=== PATIENT | male | born 2000 | race Caucasian/White ===

== ENCOUNTER 2019-06-03 18:46 | Emergency (ER) | payer OTHER ==
[2019-06-03 18:52] VITALS: BP 140/84; PULSE 107; RESP 20; TEMP 98.3
[2019-06-03] MEDS ORDERED: DIPH,PERTUS(ACELL)TETVAC-LF 0.5 ML VIAL IM ONE (19:29)
[2019-06-03] MEDS ORDERED: CEPHALEXIN 500MG STARTER PACK 4 CAP BTL PO STA (19:29)
--- NOTE | 2019-06-03 19:35 | ED ---
Lower Extremity Injury HPI - General Chief Complaint: Extremity Injury, Lower Stated Complaint: Metal wires stuck in leg Time Seen by Provider: 06/03/19 19:02 Source: patient, RN notes reviewed Mode of arrival: ambulatory Limitations: no limitations - History of Present Illness Initial Comments: 19-year-old male presents emergency from chief complaint of foreign body to the right lower leg region. Patient states he was usingweed clover states that a piece of metal flew into his right leg he is unsure when his last tetanus was. He states he attempted to remove the pieces but cannot pull them out himself. Patient denies any active bleeding. - Related Data Home Medications Medication Instructions Recorded Confirmed Lisdexamfetamine Dimesylate 60 mg PO QAM 07/15/14 07/15/14 [Vyvanse] Previous Rx's Medication Instructions Recorded Ibuprofen [Motrin] 800 mg PO Q6HR PRN #20 tab 07/15/14 Cephalexin [Keflex] 500 mg PO Q8HR #21 cap 06/03/19 Allergies Allergy/AdvReac Type Severity Reaction Status Date / Time No Known Allergies Allergy Verified 06/03/19 18:52 Review of Systems ROS Statement: Those systems with pertinent positive or pertinent negative responses have been documented in the HPI. ROS Other: All systems not noted in ROS Statement are negative. Past Medical History Past Medical History: No Reported History Additional Past Medical History / Comment(s): adhd History of Any Multi-Drug Resistant Organisms: None Reported Past Surgical History: No Surgical Hx Reported Past Psychological History: ADD/ADHD Smoking Status: Current every day smoker Past Alcohol Use History: Occasional Past Drug Use History: Marijuana General Exam Limitations: no limitations General appearance: alert, in no apparent distress Head exam: Present: atraumatic, normocephalic, normal inspection Neck exam: Present: normal inspection, full ROM. Absent: tenderness, meningismus, lymphadenopathy Respiratory exam: Present: normal lung sounds bilaterally. Absent: respiratory distress, wheezes, rales, rhonchi, stridor Cardiovascular Exam: Present: regular rate, normal rhythm, normal heart sounds. Absent: systolic murmur, diastolic murmur, rubs, gallop, clicks Extremities exam: Present: other (Right calf region there are 2 very thin metal wires noted in the subcutaneous neurovascular intact) Skin exam: Present: warm, dry, intact, normal color. Absent: rash Course Vital Signs 06/03/19 18:49 Temperature 98.3 F Pulse Rate 107 H Respiratory 20 Rate Blood Pressure 140/84 O2 Sat by Pulse 98 Oximetry Procedures - Procedures Initial comment: Soft tissue foreign body was removed by me with no complications, no active bleeding the wound was cleaned, dressed. 2 pieces of metal removed Medical Decision Making - Medical Decision Making 19-year-old male presents from for foreign bite to his right leg. This was removed and no comp patients tetanus is updated patient we discharged on Keflex. Disposition Clinical Impression: Soft tissues foreign body Disposition: HOME SELF-CARE Condition: Stable Instructions (If sedation given, give patient instructions): Soft Tissue Foreign Body (ED) Additional Instructions: Please return to the Emergency Department if symptoms worsen or any other екатерина rns. Prescriptions: Cephalexin [Keflex] 500 mg PO Q8HR #21 cap Is patient prescribed a controlled substance at d/c from ED?: No Referrals: Yanet Machuca MD [Primary Care Provider] - 1-2 days Time of Disposition: 19:34
--- NOTE | 2019-06-03 20:15 | XR ---
PROCEDURE: XR tibia fibula RT - 4V DATE AND TIME: 06/03/2019 7:28 PM CLINICAL INDICATION: PHH; Pain TECHNIQUE: Department protocol COMPARISON: None FINDINGS: There is no fracture or malalignment. There are 2 metallic opacities in the lateral subcuta neous soft tissues of the upper right leg, which are well visualized on all four views. These are con sistent with pieces of wire measuring 0.1 cm diameter and measuring 1.5 cm and approximately 7.5 cm i n total length. IMPRESSION: Metallic radiopaque foreign bodies.
== END 2019-06-03 19:53 | disposition home or self-care (01) ==
LOC: EC 18:46
DX: S80.851A Superficial foreign body, right lower leg, initial encounter (principal); F90.9 Attention-deficit hyperactivity disorder, unspecified type; F17.200 Nicotine dependence, unspecified, uncomplicated; Z23 Encounter for immunization; Z79.899 Other long term (current) drug therapy; W45.8XXA Other foreign body or object entering through skin, initial encounter; Y93.E2 Activity, laundry; Y92.096 Garden or yard of other non-institutional residence as the place of occurrence of the external cause
CPT/HCPCS: 90471; 90715; 99283

== ENCOUNTER 2022-07-19 22:22 | Emergency (ER) | payer OTHER ==
[2022-07-19 23:00] VITALS: BP 130/75; PULSE 86; RESP 22; TEMP 98.4
--- NOTE | 2022-07-20 00:42 | ED ---
General Adult HPI - General Chief complaint: Upper Respiratory Infection Stated complaint: Covid + Time Seen by Provider: 07/19/22 23:07 Source: patient, family Mode of arrival: ambulatory Limitations: no limitations - History of Present Illness Initial comments: Patient is a 22-year-old male who presents complaining COVID-19. Patient states symptoms started 3 days ago. He had a positive home test today. He is experiencing nasal congestion and sore throat. Denies chest pain and shortness of breath. He requests Paxlovid prescription. - Related Data Home Medications Medication Instructions Recorded Confirmed Lisdexamfetamine Dimesylate 60 mg PO QAM 07/15/14 07/15/14 [Vyvanse] Previous Rx's Medication Instructions Recorded Ibuprofen [Motrin] 800 mg PO Q6HR PRN #20 tab 07/15/14 Cephalexin [Keflex] 500 mg PO Q8HR #21 cap 06/03/19 Fluticasone Nasal [place] [Flonase 2 spray EA NOSTRIL DAILY #16 gm 07/20/22 Nasal [place]] Allergies Allergy/AdvReac Type Severity Reaction Status Date / Time No Known Allergies Allergy Verified 07/19/22 23:00 Review of Systems ROS Statement: Those systems with pertinent positive or pertinent negative responses have been documented in the HPI. ROS Other: All systems not noted in ROS Statement are negative. Past Medical History Past Medical History: No Reported History Additional Past Medical History / Comment(s): adhd History of Any Multi-Drug Resistant Organisms: None Reported Past Surgical History: No Surgical Hx Reported Past Psychological History: ADD/ADHD Smoking Status: Former smoker, Vaper Past Alcohol Use History: Occasional Past Drug Use History: Marijuana General Exam Limitations: no limitations General appearance: alert, in no apparent distress Eye exam: Present: normal appearance, PERRL, EOMI. Absent: scleral icterus, conjunctival injection, periorbital swelling ENT exam: Present: normal oropharynx Respiratory exam: Present: normal lung sounds bilaterally. Absent: respiratory distress, wheezes, rales, rhonchi, stridor Cardiovascular Exam: Present: regular rate, normal rhythm, normal heart sounds. Absent: systolic murmur, diastolic murmur, rubs, gallop, clicks Neurological exam: Present: alert, oriented X3, CN II-XII intact Psychiatric exam: Present: normal affect, normal mood Skin exam: Present: warm, dry, intact, normal color. Absent: rash Course Vital Signs 07/19/22 22:58 Temperature 98.4 F Pulse Rate 86 Respiratory 22 Rate Blood Pressure 130/75 O2 Sat by Pulse 98 Oximetry Medical Decision Making - Medical Decision Making This is a 22-year-old male who presents with COVID-19 symptoms positive at home test today. Thorough history and examination were performed. Patient is well- appearing. Afebrile. COVID-19 is detected. Patient given Paxlovid prescription. Quarantine instructions provided. Patient to follow-up with primary care provider. Dr. Rodriguez is my attending. - Lab Data Lab Results 07/19/22 Range/Units 23:03 Coronavirus (PCR) Detected A (Not Detectd) Disposition Clinical Impression: COVID-19 Disposition: HOME SELF-CARE Condition: Good Instructions (If sedation given, give patient instructions): Coronavirus Disease 2019 (COVID-19) Additional Instructions: Take Paxlovid prescription to the pharmacy to fill. Quarantine at home for 5 days. Use nasal spray for congestion. Take Tylenol or Motrin for headache. Use salt water gargles or lozenges for throat pain. Increase water intake. Return to the emergency department if you experience new, concerning, or worsening symptoms. Prescriptions: Fluticasone Nasal [place] [Flonase Nasal [place]] 2 spray EA NOSTRIL DAILY #16 gm Is patient prescribed a controlled substance at d/c from ED?: No Referrals: Yanet Machuca MD [Primary Care Provider] - 1-2 days Time of Disposition: 00:42
== END 2022-07-20 01:13 | disposition home or self-care (01) ==
LOC: EC 22:22
DX: U07.1 COVID-19 (principal); F17.290 Nicotine dependence, other tobacco product, uncomplicated; F12.90 Cannabis use, unspecified, uncomplicated
CPT/HCPCS: 87635; 99283

== ENCOUNTER 2022-07-26 21:55 | Emergency (ER) | payer OTHER ==
[2022-07-26 22:07] VITALS: BP 118/72; PULSE 75; RESP 16; TEMP 98.3
--- NOTE | 2022-07-27 00:13 | XR ---
EXAMINATION TYPE: XR chest 2V DATE OF EXAM: 07/26/2022 COMPARISON: NONE HISTORY: Syncope TECHNIQUE: 2 views FINDINGS: Heart and mediastinum are normal. Lungs are clear. Diaphragm is normal. Bony thorax is norm al. IMPRESSION: Normal chest. Normal heart.
[2022-07-27] MEDS ORDERED: SODIUM CHLORIDE 0.9% 1,000 ML IV STA (00:36)
--- NOTE | 2022-07-27 01:05 | ED ---
Dizziness HPI - General Chief Complaint: Dizziness Stated Complaint: Covid related issue Time Seen by Provider: 07/27/22 00:16 Source: patient, RN notes reviewed Mode of arrival: ambulatory Limitations: no limitations - History of Present Illness Initial Comments: This is a 22-year-old male who presents to the emergency department for COVID related problems. Patient states that on 07/19 he tested positive for COVID. Over the last few days, he has become significantly more short of breath and feels like he has episodes where he becomes dizzy and may pass out. When he was at work earlier today, he began to feel dizzy and almost passed out on one of the machines. Denies any chest pain or upper respiratory symptoms. He did not have any issues like this prior to being diagnosed with COVID. Denies any fevers, chills, sore throat, cough, chest pain, palpitations, abdominal pain, nausea, vomiting, diarrhea, back pain, or headaches. MD Complaint: dizziness, near syncope Onset/Timin -: days(s) - Related Data Home Medications Medication Instructions Recorded Confirmed Lisdexamfetamine Dimesylate 60 mg PO QAM 07/15/14 07/15/14 [Vyvanse] Previous Rx's Medication Instructions Recorded Ibuprofen [Motrin] 800 mg PO Q6HR PRN #20 tab 07/15/14 Cephalexin [Keflex] 500 mg PO Q8HR #21 cap 06/03/19 Fluticasone Nasal [place] [Flonase 2 spray EA NOSTRIL DAILY #16 gm 07/20/22 Nasal [place]] Albuterol Inhaler [Ventolin Hfa 1 puff INHALATION Q6H PRN #8 gm 07/27/22 Inhaler] Meclizine [Antivert] 25 mg PO TID PRN #30 tab 07/27/22 Metoclopramide [Reglan] 10 mg PO Q6H PRN #30 tab 07/27/22 Allergies Allergy/AdvReac Type Severity Reaction Status Date / Time No Known Allergies Allergy Verified 07/26/22 22:02 Review of Systems ROS Statement: Those systems with pertinent positive or pertinent negative responses have been documented in the HPI. ROS Other: All systems not noted in ROS Statement are negative. Past Medical History Past Medical History: No Reported History Additional Past Medical History / Comment(s): adhd History of Any Multi-Drug Resistant Organisms: None Reported Past Surgical History: No Surgical Hx Reported Past Psychological History: ADD/ADHD Smoking Status: Former smoker, Vaper Past Alcohol Use History: Occasional Past Drug Use History: Marijuana General Exam Limitations: no limitations General appearance: alert, in no apparent distress Head exam: Present: atraumatic, normocephalic, normal inspection Respiratory exam: Present: normal lung sounds bilaterally. Absent: respiratory distress, wheezes, rales, rhonchi, stridor Cardiovascular Exam: Present: regular rate, normal rhythm, normal heart sounds. Absent: systolic murmur, diastolic murmur, rubs, gallop, clicks Neurological exam: Present: alert, oriented X3, CN II-XII intact Psychiatric exam: Present: normal affect, normal mood Skin exam: Present: warm, dry, intact, normal color. Absent: rash Course Vital Signs 07/26/22 22:03 Temperature 98.3 F Pulse Rate 75 Respiratory 16 Rate Blood Pressure 118/72 O2 Sat by Pulse 98 Oximetry Medical Decision Making - Medical Decision Making This is a 22-year-old male who presents to the emergency department for shortness of breath and dizziness. Lab work and a chest x-ray were obtained. Lab work was nonactionable, and included a d-dimer to evaluate for pulmonary embolus and troponin to evaluate for myocardial injury. Chest x-ray revealed no acute cardiopulmonary process. Discussed with the patient that he is still in the process of recovering from COVID-19. Prescription for albuterol inhaler provided to use for episodes of shortness of breath. Also discussed that the dizziness may be related to vertigo as a result of the COVID. Patient was given prescription for Antivert and Reglan to help with these episodes. Advised that the Antivert may be sedating and is best taken at night or if he will be home all day. Return precautions reviewed in depth, the patient is instructed to return to the emergency department with any new, worsening, or concerning symptoms. Patient verbalized understanding. This case was discussed in detail with the attending ED physician. Presentation, findings, and treatment plan discussed in detail as well. - Lab Data Result diagrams: 07/27/22 01:11 07/27/22 01:11 Lab Results 07/27/22 07/27/22 07/27/22 Range/Units 01:11 01:11 01:11 WBC 7.7 (3.8-10.6) k/uL RBC 5.14 (4.30-5.90) m/uL Hgb 15.4 (13.0-17.5) gm/dL Hct 45.5 (39.0-53.0) % MCV 88.5 (80.0-100.0) fL MCH 29.9 (25.0-35.0) pg MCHC 33.8 (31.0-37.0) g/dL RDW 13.5 (11.5-15.5) % Plt Count 218 (150-450) k/uL MPV 7.7 Neutrophils % 60 % Lymphocytes % 28 % Monocytes % 7 % Eosinophils % 3 % Basophils % 1 % Neutrophils # 4.6 (1.3-7.7) k/uL Lymphocytes # 2.1 (1.0-4.8) k/uL Monocytes # 0.5 (0-1.0) k/uL Eosinophils # 0.2 (0-0.7) k/uL Basophils # 0.0 (0-0.2) k/uL D-Dimer <0.17 (<0.60) mg/L FEU Sodium 139 (137-145) mmol/L Potassium 4.3 (3.5-5.1) mmol/L Chloride 103 (98-107) mmol/L Carbon Dioxide 24 (22-30) mmol/L Anion Gap 12 mmol/L BUN 17 (9-20) mg/dL Creatinine 0.93 (0.66-1.25) mg/dL Est GFR (CKD-EPI)AfAm >90 (>60 ml/min/1.73 sqM) Est GFR (CKD-EPI)NonAf >90 (>60 ml/min/1.73 sqM) Glucose 113 H (74-99) mg/dL Calcium 9.7 (8.4-10.2) mg/dL Total Bilirubin 0.3 (0.2-1.3) mg/dL AST 29 (17-59) U/L ALT 37 (4-49) U/L Alkaline Phosphatase 52 (38-126) U/L Troponin I (0.000-0.034) ng/mL NT-Pro-B Natriuret Pep pg/mL Total Protein 6.9 (6.3-8.2) g/dL Albumin 4.5 (3.5-5.0) g/dL TSH 1.250 (0.465-4.680) mIU/L 07/27/22 07/27/22 Range/Units 01:11 01:11 WBC (3.8-10.6) k/uL RBC (4.30-5.90) m/uL Hgb (13.0-17.5) gm/dL Hct (39.0-53.0) % MCV (80.0-100.0) fL MCH (25.0-35.0) pg MCHC (31.0-37.0) g/dL RDW (11.5-15.5) % Plt Count (150-450) k/uL MPV Neutrophils % % Lymphocytes % % Monocytes % % Eosinophils % % Basophils % % Neutrophils # (1.3-7.7) k/uL Lymphocytes # (1.0-4.8) k/uL Monocytes # (0-1.0) k/uL Eosinophils # (0-0.7) k/uL Basophils # (0-0.2) k/uL D-Dimer (<0.60) mg/L FEU Sodium (137-145) mmol/L Potassium (3.5-5.1) mmol/L Chloride (98-107) mmol/L Carbon Dioxide (22-30) mmol/L Anion Gap mmol/L BUN (9-20) mg/dL Creatinine (0.66-1.25) mg/dL Est GFR (CKD-EPI)AfAm (>60 ml/min/1.73 sqM) Est GFR (CKD-EPI)NonAf (>60 ml/min/1.73 sqM) Glucose (74-99) mg/dL Calcium (8.4-10.2) mg/dL Total Bilirubin (0.2-1.3) mg/dL AST (17-59) U/L ALT (4-49) U/L Alkaline Phosphatase (38-126) U/L Troponin I <0.012 (0.000-0.034) ng/mL NT-Pro-B Natriuret Pep 34 pg/mL Total Protein (6.3-8.2) g/dL Albumin (3.5-5.0) g/dL TSH (0.465-4.680) mIU/L - Radiology Data Radiology results: report reviewed, image reviewed Disposition Clinical Impression: COVID-19 Disposition: HOME SELF-CARE Instructions (If sedation given, give patient instructions): Vertigo (ED), Benign Paroxysmal Positional Vertigo (ED), COVID-19 (Coronavirus Disease 2019) (ED), How to Recover from COVID-19 at Home (ED) Additional Instructions: Return to the emergency department with any new, worsening, or concerning symptoms. Use the albuterol inhaler up to every 6 hours as needed for shortness of breath. Try taking the Reglan or Antivert when you feel dizzy. The Antivert will be more sedating, and you should try taking the first dose when you know that you will be home. The Reglan will also help with any feelings of nausea or vomiting. Prescriptions: Meclizine [Antivert] 25 mg PO TID PRN #30 tab PRN Reason: Vertigo Metoclopramide [Reglan] 10 mg PO Q6H PRN #30 tab PRN Reason: Vertigo Albuterol Inhaler [Ventolin Hfa Inhaler] 1 puff INHALATION Q6H PRN #8 gm PRN Reason: Shortness Of Breath Is patient prescribed a controlled substance at d/c from ED?: No Referrals: Yanet Machuca MD [Primary Care Provider] - 1-2 days
[2022-07-27 01:22] LABS: Basophils % (A) 1 %; Eosinophils # (A) 0.2 k/uL (0-0.7); Eosinophils % (A) 3 %; HCT 45.5 % (39.0-53.0); HGB 15.4 gm/dL (13.0-17.5); Lymphocytes # (A) 2.1 k/uL (1.0-4.8); Lymphocytes % (A) 28 %; MCH 29.9 pg (25.0-35.0); MCHC 33.8 g/dL (31.0-37.0); MCV 88.5 fL (80.0-100.0); Mean Platelet Volume 7.7; Monocytes # (A) 0.5 k/uL (0-1.0); Monocytes % (A) 7 %; Neutrophils # (A) 4.6 k/uL (1.3-7.7); Neutrophils % (A) 60 %; Platelet Count 218 k/uL (150-450); RBC 5.14 m/uL (4.30-5.90); RDW 13.5 % (11.5-15.5); WBC 7.7 k/uL (3.8-10.6)
[2022-07-27 01:43] LABS: ALT 37 U/L (4-49); AST 29 U/L (17-59); African American GFR (CKD) >90 (>60 ml/min/1.73 sqM); Albumin 4.5 g/dL (3.5-5.0); Alkaline Phosphatase 52 U/L (38-126); Anion Gap 12 mmol/L; Blood Urea Nitrogen 17 mg/dL (9-20); Calcium 9.7 mg/dL (8.4-10.2); Carbon Dioxide 24 mmol/L (22-30); Chloride 103 mmol/L (98-107); Glucose 113 mg/dL (74-99); Non-African American GFR(CKD) >90 (>60 ml/min/1.73 sqM); Potassium 4.3 mmol/L (3.5-5.1); Sodium 139 mmol/L (137-145); Total Bilirubin 0.3 mg/dL (0.2-1.3); Total Protein 6.9 g/dL (6.3-8.2)
[2022-07-27] MEDS ORDERED: METOCLOPRAMIDE 5 MG/ML 2 ML VIAL IVP STA (02:22)
== END 2022-07-27 03:09 | disposition home or self-care (01) ==
LOC: EC 21:55
DX: U07.1 COVID-19 (principal); Z87.891 Personal history of nicotine dependence
CPT/HCPCS: 36415; 71046; 80053; 83880; 84443; 84484; 85025; 85379; 96360; 99284